=== PATIENT | male | born 1995 | race African-American/Black ===

== ENCOUNTER 2021-03-31 23:57 | Emergency (ER) | payer SELFPAY ==
[2021-04-01 00:44] VITALS: BP 133/78; PULSE 54; TEMP 98.1; BMI 25.3
== END 2021-04-01 02:15 | disposition left against medical advice (07) ==
LOC: JER 23:57
DX: M79.605 Pain in left leg (principal); Y93.02 Activity, running
CPT/HCPCS: 99281-25

== ENCOUNTER 2021-04-02 12:18 | Emergency (ER) | payer SELFPAY ==
[2021-04-02 12:38] VITALS: BP 136/73; PULSE 56; TEMP 97; BMI 25.4
[2021-04-02] MEDS ORDERED: IBUPROFEN 600 MG TABLET (FP) PO ONE ×2 (13:26→13:42)
== END 2021-04-02 14:40 | disposition home or self-care (01) ==
LOC: JER 12:18
DX: M79.605 Pain in left leg (principal)
CPT/HCPCS: 73590-TC-LT-FY; 99283-25

== ENCOUNTER 2021-08-23 21:56 | Emergency (ER) | payer OTHER ==
[2021-08-23 22:06] VITALS: BP 131/72; PULSE 60; TEMP 98.2; BMI 25.8
== END 2021-08-24 03:18 | disposition home or self-care (01) ==
LOC: JER 21:56
DX: R07.9 Chest pain, unspecified (principal)
CPT/HCPCS: 71046-TC-FY; 99284-25; C9803-CS; U0003; U0005